=== PATIENT | female | born 1990 | race Caucasian/White ===

== ENCOUNTER 2017-01-12 16:54 | Inpatient (IN) | payer BC ==
[2017-01-12] VITALS (27 sets, daily range): BP systolic 107–164; BP diastolic 61–104; PULSE 78–130; TEMP 97.5–99.4
[~2017-01-12] VITALS: Ht 162.6 cm; Wt 86.4 kg
[2017-01-12] MEDS ORDERED: PRENATAL1 TA7 PO (17:09)
[2017-01-12] MEDS ORDERED: PROFE180 MG PO (17:10)
[2017-01-12 17:41] LABS: BASO % 0.2 % (0.0-2.0); GRAN # 9.6 (1.4-6.5); HEMOGLOBIN 12.3 g/dl (12.5-16.0); LYMPH # 1.2 (1.2-3.4); LYMPH % 10.7 % (20.0-51.0); MEAN CELL VOLUME 90 fl (80.0-100.0); MEAN CORPUSCULAR HEMOGLOBIN 31 pg (27.0-31.0); MEAN CORPUSCULAR HGB CONC 34 g/dl (33.0-37.0); MEAN PLATELET VOLUME 12.7 fl (7.4-10.4); MONO # 0.5 (0.1-0.6); MONO % 4.7 % (1.7-9.3); PLATELET COUNT 146 K/mm3 (130-400); RED BLOOD COUNT 3.99 M/mm3 (4.10-5.30); WHITE BLOOD COUNT 11.4 K/mm3 (4.8-10.8)
[2017-01-12 18:04] LABS: HEMATOCRIT 35.8 % (37.0-47.0)
[2017-01-13] VITALS (33 sets, daily range): BP systolic 105–166; BP diastolic 57–97; PULSE 89–133; TEMP 97.5–99.6
[2017-01-14] VITALS: BP 114/71; PULSE 98
[2017-01-14 03:40] VITALS: BP 124/78; PULSE 101
[2017-01-14 07:09] VITALS: BP 126/80; PULSE 103; TEMP 97.8
[2017-01-14 16:50] VITALS: BP 152/88; PULSE 91; TEMP 98.5
[2017-01-14 19:00] VITALS: BP 133/84; PULSE 101; TEMP 98.7
[2017-01-15 07:00] VITALS: BP 134/88; PULSE 94; TEMP 98
[2017-01-15] MEDS ORDERED: IBU800 M1 PO (08:44)
[2017-01-15] MEDS ORDERED: PERCOCET 325 MG1 TA2 PO (08:44)
== END 2017-01-15 12:37 | disposition home or self-care (01) | DRG 766 ==
LOC: LDRO 16:54 → OB 17:00 → LDR 17:00 → OB 01-13 06:05
PROVIDERS: Obstetrics & Gynecology
PROC: 10D00Z1 Extraction of Products of Conception, Low, Open Approach (ICD-10-PCS; principal; 2017-01-13)
DX: O62.0 Primary inadequate contractions (principal); Z3A.39 39 weeks gestation of pregnancy; Z37.0 Single live birth
CPT/HCPCS: J0690; J1885; J2175; J2270; J2370; J2400; J2405; J2590; J2795; J7120

== ENCOUNTER 2019-08-23 11:00 | Outpatient (RCR) | payer BC ==
--- NOTE | 2019-08-01 11:40 | NUR ---
PATIENT TO LR 5 FOR NST. ON EFM. ASSESMENT COMPLETE, PATIENT DENIES BLEEDING, LEAKING OF FLUID OR CONTRACTIONS. PATIENT FEELS BOTH BABIES MOVING
--- NOTE | 2019-08-08 10:55 | NUR ---
1055-Pt arrives on unit for scheduled NST-twins. Pt into bed. EFM and TOCO on and tracing. Pt denies UCs, FB, LOF. +FM for both babies per Pt. 1137- EFM and TOCO off. Pt denies questions. Pt to return next Thursday08/15/2019 for scheduled NST. 1140- Pt ambulates off unit independently in stable condition.
[~2019-08-23] VITALS: Ht 162.6 cm; Wt 78.0 kg
[~2019-08-23 11:00] MED LIST: IBU800 M1 PO; PERCOCET 325 MG1 TA2 PO; PRENATAL TABLET PO; PRENATAL1 TA7 PO; PROFE180 MG PO
--- NOTE | 2019-08-23 11:09 | NUR ---
1100 patient here for nonstress test for twins, baby A RIGHT LOWER QUAD 140 BABY B MIDDLE UPPER QUAD. 150 BOTH BABIES VERY ACTIVE. MOM DENIES NEEDS ASSESSMENT COMPLETED.
--- NOTE | 2019-08-23 11:55 | NUR ---
1150 DR IRIZARRY CALLED AND UPDATED. STRIP REVIEWED AT THIS TIME. ORDERS GIVEN BY DR IRIZARRY TO DISMISS TO HOME. WILL RETURN THURSDAY MORNING FOR A C SECTION SCHEDULED AT NOON. REACTIVE TIMES 2
[2019-09-01] MEDS ORDERED: PERCOCET 325 MG1 TA2 PO (08:21)
[2019-09-01] MEDS ORDERED: MOTRIN 800800 MG/TAB PO (08:21)
== END 2019-10-30 | disposition still patient (30) ==
LOC: LDRO
DX: O30.003 Twin pregnancy, unspecified number of placenta and unspecified number of amniotic sacs, third trimester (principal); Z3A.32 32 weeks gestation of pregnancy